=== PATIENT | female | born 2000 ===

== ENCOUNTER 2018-07-03 21:08 | Emergency (ER) | payer SELFPAY ==
[~2018-07-03] VITALS: Ht 157.5 cm; Wt 37.1 kg
[2018-07-03 21:16] VITALS: BP 119/73; PULSE 72; RESP 16; Ht 157.5 cm; Wt 37.1 kg
== END 2018-07-03 22:26 | disposition left against medical advice (07) ==
LOC: FTE 21:08
DX: Z53.21 Procedure and treatment not carried out due to patient leaving prior to being seen by health care provider (principal)